=== PATIENT | male | born 1960 | race Caucasian/White ===

== ENCOUNTER 2018-09-27 09:47 | Emergency (ER) | payer BC ==
[~2018-09-27] VITALS: Ht 185.4 cm; Wt 74.8 kg
[2018-09-27] MEDS ORDERED: KETOROLAC 30 MG/ML VIAL. IV ONE (10:30)
[2018-09-27] MEDS ORDERED: FAMOTIDINE 20 MG/2 ML VIAL IVP ONE (10:30)
[2018-09-27] MEDS ORDERED: ONDANSETRON PF 4 MG/2 ML VIAL. IV ONE (10:30)
[2018-09-27] MEDS ORDERED: IV NORMAL SALINE 1000ML BAG 1,000 ML IV ONE (10:30)
[2018-09-27 11:04] LABS: BASO % 0 % (0-3); EOS % 0 % (0-3); HEMATOCRIT 49.8 % (39.0-53.0); HEMOGLOBIN 17.1 g/dL (13.0-17.5); LYMPH # 1.7 x10^3/uL (1.0-4.8); LYMPH % 16 % (24-48); MEAN CORPUSCULAR HEMOGLOBIN 31 pg (25-35); MEAN CORPUSCULAR HGB CONC 34 g/dL (31-37); MEAN CORPUSCULAR VOLUME 90 fL (79-100); MONO # 0.7 x10^3/uL (0.0-1.1); MONO % 7 % (0-9); NEUT # 8.3 x10^3uL (1.8-7.7); NEUT % 77 % (31-73); PLATELET COUNT 225 x10^3/uL (140-400); RED BLOOD COUNT 5.55 x10^6/uL (4.30-5.70); RED CELL DISTRIBUTION WIDTH 12.8 % (11.5-14.5); WHITE BLOOD COUNT 10.7 x10^3/uL (4.0-11.0)
--- NOTE | 2018-09-27 11:05 | PHYS DOC ---
Past Medical History Past Medical History: Other Additional Past Medical Histor: PANCREATITIS, BARRETS ESOPHAGUS Past Surgical History: Other Additional Past Surgical Histo: "MASS REMOVED FROM COLON" Alcohol Use: Rarely Drug Use: None Adult General Chief Complaint Chief Complaint: NAUSEA/VOMITING/DIARRHA HPI HPI Patient is a 58 year old male who presents with nausea, vomiting, diarrhea, and abdominal pain. Patient states that he developed epigastric pain last week. Patient states that he has a history of pancreatitis and thought he was having a flare of pancreatitis. Patient states that he developed nausea five days ago. Patient states that he began having watery, yellow-brown, nonbloody diarrhea three days ago. Patient reports one episode of nonbloody vomiting this morning, but no other episodes. Patient states that he has been having decreased oral intake and weakness for the past few days as well. Patient currently rates his epigastric pain to be 3/10. Denies any aggravating or alleviating factors. Denies radiation of pain. Denies any recent antibiotic use or recent travel. Denies chest pain. Review of Systems Review of Systems Constitutional: Denies fever or chills Eyes: Denies change in visual acuity or eye pain HENT: Denies nasal congestion or sore throat Respiratory: Denies cough or shortness of breath Cardiovascular: Denies chest pain or palpitations GI: Denies bloody stools. Denies hematemesis. : Denies dysuria or hematuria Musculoskeletal: Denies back pain. Reports chronic muscle aches. Integument: Denies rash or skin lesions Neurologic: Denies headache, focal weakness or sensory changes Complete systems were reviewed and found to be within normal limits, except as documented in this note. Current Medications Current Medications Current Medications Medications (Trade) Dose Ordered Sig/Reinaldo Start Time Stop Time Status Last Admin Dose Admin Famotidine (Pepcid Vial) 20 mg 1X ONCE 09/27/18 10:30 09/27/18 10:33 DC 09/27/18 11:10 20 MG Fentanyl Citrate (Fentanyl 2ml Vial) 50 mcg 1X ONCE 09/27/18 12:30 09/27/18 12:31 DC 09/27/18 12:33 50 MCG Ketorolac Tromethamine (Toradol 30mg Vial) 15 mg 1X ONCE 09/27/18 10:30 09/27/18 10:33 DC 09/27/18 11:06 15 MG Multi-Ingredient Mouthwash/Gargle (Gi Cocktail) 20 ml 1X ONCE 09/27/18 12:30 09/27/18 12:31 DC 09/27/18 12:33 20 ML Ondansetron HCl (Zofran) 4 mg 1X ONCE 09/27/18 10:30 09/27/18 10:33 DC 09/27/18 11:00 4 MG Sodium Chloride 1,000 ml @ 1,000 mls/hr 1X ONCE 09/27/18 10:30 09/27/18 11:29 DC 09/27/18 10:52 1,000 MLS/HR Allergies Allergies Allergies Coded Allergies Type Severity Reaction Last Updated Verified No Known Drug Allergies 09/27/18 No Physical Exam Physical Exam Constitutional: Well developed, well nourished, no acute distress. HENT: Normocephalic, atraumatic, nose normal. Mucous membranes dry. Eyes: PERRL, conjunctiva normal, no discharge. Neck: normal range of motion, supple, no stridor. Cardiovascular: Heart rate regular rhythm, no murmur Lungs & Thorax: Bilateral breath sounds clear to auscultation Abdomen: Bowel sounds active, soft, no distension, moderate epigastric tenderness on palpation. No rebound, guarding, or rigidity. Skin: Warm, dry, no erythema, no rash. Back: No midline tenderness, no CVA tenderness. Extremities: No tenderness, no cyanosis, no clubbing, ROM intact, no edema. Neurologic: Alert and oriented X 3, normal motor function, normal sensory function, no focal deficits noted. Psychologic: Affect normal. Speech normal. Current Patient Data Vital Signs Vital Signs Date Time Temp Pulse Resp B/P (MAP) Pulse Ox O2 Delivery O2 Flow Rate FiO2 09/27/18 12:41 60 16 112/72 (85) 94 Room Air 09/27/18 10:21 98.2 98.2 Lab Values Laboratory Tests Test 09/27/18 10:55 09/27/18 12:13 White Blood Count 10.7 x10^3/uL (4.0-11.0) Red Blood Count 5.55 x10^6/uL (4.30-5.70) Hemoglobin 17.1 g/dL (13.0-17.5) Hematocrit 49.8 % (39.0-53.0) Mean Corpuscular Volume 90 fL (79-100) Mean Corpuscular Hemoglobin 31 pg (25-35) Mean Corpuscular Hemoglobin Concent 34 g/dL (31-37) Red Cell Distribution Width 12.8 % (11.5-14.5) Platelet Count 225 x10^3/uL (140-400) Neutrophils (%) (Auto) 77 % (31-73) H Lymphocytes (%) (Auto) 16 % (24-48) L Monocytes (%) (Auto) 7 % (0-9) Eosinophils (%) (Auto) 0 % (0-3) Basophils (%) (Auto) 0 % (0-3) Neutrophils # (Auto) 8.3 x10^3uL (1.8-7.7) H Lymphocytes # (Auto) 1.7 x10^3/uL (1.0-4.8) Monocytes # (Auto) 0.7 x10^3/uL (0.0-1.1) Eosinophils # (Auto) 0.0 x10^3/uL (0.0-0.7) Basophils # (Auto) 0.0 x10^3/uL (0.0-0.2) Sodium Level 138 mmol/L (136-145) Potassium Level 4.5 mmol/L (3.5-5.1) Chloride Level 100 mmol/L (98-107) Carbon Dioxide Level 27 mmol/L (21-32) Anion Gap 11 (6-14) Blood Urea Nitrogen 12 mg/dL (8-26) Creatinine 0.6 mg/dL (0.7-1.3) L Estimated GFR (Cockcroft-Gault) 138.9 BUN/Creatinine Ratio 20 (6-20) Glucose Level 99 mg/dL (70-99) Calcium Level 9.2 mg/dL (8.5-10.1) Magnesium Level 2.1 mg/dL (1.8-2.4) Total Bilirubin 0.7 mg/dL (0.2-1.0) Aspartate Amino Transferase (AST) 27 U/L (15-37) Alanine Aminotransferase (ALT) 26 U/L (16-63) Alkaline Phosphatase 80 U/L (46-116) Creatine Kinase 67 U/L (39-308) Creatine Kinase MB (Mass) 2.5 ng/mL (0.0-3.6) Creatine Kinase MB Relative Index % (0-4) Troponin I Quantitative < 0.017 ng/mL (0.000-0.055) Total Protein 7.1 g/dL (6.4-8.2) Albumin 3.9 g/dL (3.4-5.0) Albumin/Globulin Ratio 1.2 (1.0-1.7) Lipase 139 U/L (73-393) Urine Collection Type Unknown Urine Color [place] Urine Clarity Clear Urine pH 5.5 Urine Specific [place] >=1.030 Urine Protein 30 mg/dL (NEG-TRACE) Urine Glucose (UA) Negative mg/dL (NEG) Urine Ketones (Stick) 15 mg/dL (NEG) Urine Blood Negative (NEG) Urine Nitrite Negative (NEG) Urine Bilirubin Small (NEG) Urine Urobilinogen Dipstick 1.0 mg/dL (0.2 mg/dL) Urine Leukocyte Esterase Negative (NEG) Urine RBC 0 /HPF (0-2) Urine WBC 0 /HPF (0-4) Urine Squamous Epithelial Cells Occ /LPF Urine Bacteria 0 /HPF (0-FEW) Urine Mucus Marked /LPF Laboratory Tests 09/27/18 10:55 Laboratory Tests 09/27/18 10:55 EKG EKG @NSR at 64bpm, NO ST elevation, J point V3-V6, nonspecific t wave inversion aVL and V2 Radiology/Procedures Radiology/Procedures [] Course & Med Decision Making Course & Med Decision Making Patient is a 58 year old male who presents to the ED for nausea, vomiting, diarrhea, and abdominal pain. Patient treated with Pepcid, Zofran, Ketorolac and fluids in the ED. Pertinent Labs and Imaging studies reviewed. (See chart for details). No significant abnormalities noted. Patient stable for discharge with outpatient follow-up with PCP. Discussed findings and plan with patient and family, who acknowledge understanding and agreement. Dragon Disclaimer Dragon Disclaimer This electronic medical record was generated, in whole or in part, using a voice recognition dictation system. Departure Departure Impression: Primary Impression: Epigastric abdominal pain Additional Impression: Nausea vomiting and diarrhea Disposition: HOME, SELF-CARE Condition: STABLE Referrals: NO PCP (PCP) Patient Instructions: Abdominal Pain (Nonspecific), Diarrhea, [id number], Diet for Diarrhea, Adult, Nausea and Vomiting, [id number] Scripts Acetaminophen With Codeine (TYLENOL WITH CODEINE #3 TABLET) 1 Each Tablet 1 TAB PO PRN Q6HRS PRN for PAIN, #10 TAB Prov: BOLIVAR SAXENA DO 09/27/18 Famotidine (PEPCID) 20 Mg Tablet 20 MG PO BID, #14 TAB Prov: BOLIVAR SAXENA DO 09/27/18 Ondansetron (ONDANSETRON ODT) 4 Mg Tab.rapdis 1 TAB PO PRN Q6-8HRS PRN for VOMITING, #16 TAB Prov: BOLIVAR SAXENA DO 09/27/18 Problem Qualifiers BOLIVAR SAXENA DO Sep 27, 2018 11:05
[2018-09-27 11:17] LABS: CALCIUM 9.2 mg/dL (8.5-10.1); CREATININE 0.6 mg/dL (0.7-1.3); GFR 138.9; POTASSIUM 4.5 mmol/L (3.5-5.1)
[2018-09-27 11:23] LABS: ALBUMIN 3.9 g/dL (3.4-5.0); ALBUMIN/GLOBULIN RATIO 1.2 (1.0-1.7); TOTAL BILIRUBIN 0.7 mg/dL (0.2-1.0); TOTAL PROTEIN 7.1 g/dL (6.4-8.2)
[2018-09-27 11:31] LABS: CREATINE KINASE 67 U/L (39-308)
--- NOTE | 2018-09-27 11:42 | EKG ---
[facility] [address] [place] [address] Test Date: 2018-09-27 Test Time: 11:05:43 Pat Name: MARK COLLADO Department: Room: Gender: M Security Inspector: : 1960 Requested By: BOLIVAR SAXENA Order Number: [id number] Reading MD: Aly Rivera Measurements Intervals [place] Rate: 64 P: 64 IA: 164 QRS: 90 QRSD: 102 T: 69 QT: 386 QTc: 402 Interpretive Statements SINUS RHYTHM Electronically Signed On 10-02-2018 13:15:33 CDT by Aly Rivera
[2018-09-27 12:29] LABS: BILIRUBIN,URINE SMALL (NEG); CLARITY,URINE CLEAR; COLOR,URINE AMBER; NITRITE,URINE NEGATIVE (NEG); PH,URINE 5.5; PROTEIN,URINE 30 mg/dL (NEG-TRACE)
[2018-09-27] MEDS ORDERED: fentaNYL PF VIAL 100 MCG/2 ML VIAL IV ONE (12:30)
[2018-09-27] MEDS ORDERED: LIDO:MAALOX 1:1 20 ML SINGLE DOSE. PO ONE (12:30)
[2018-09-27 12:39] LABS: BACTERIA,URINE 0 /HPF (0-FEW); RBC,URINE 0 /HPF (0-2); SQUAMOUS EPITHELIAL CELL,UR OCC /LPF; WBC,URINE 0 /HPF (0-4)
[2018-09-27 12:41] VITALS: BP 112/72
[2018-09-27] MEDS ORDERED: FAMO-63 PO (13:00)
[2018-09-27] MEDS ORDERED: ACET-704 PO (13:00)
[2018-09-27] MEDS ORDERED: ONDA4TAB12 PO (13:00)
[2018-10-26] MEDS ORDERED: CIPR250T30 PO (12:04)
== END 2018-09-27 13:09 | disposition home or self-care (01) ==
LOC: ER 09:47
DX: R11.2 Nausea with vomiting, unspecified (principal); R19.7 Diarrhea, unspecified; R10.13 Epigastric pain
CPT/HCPCS: 36415; 80053; 81001; 82553; 83690; 83735; 84484; 85025; 93005; 96361; 96374; 96375; 99285; J1885; J2405; J3010; J3490; J7030

== ENCOUNTER 2018-10-25 09:07 | Inpatient (IN) | payer BC ==
[~2018-10-25] VITALS: Ht 182.9 cm; Wt 72.6 kg
[~2018-10-25 09:07] MED LIST: ACET-704 PO; FAMO-63 PO; ONDA4TAB12 PO
[2018-10-25 09:27] LABS: BILIRUBIN,URINE NEGATIVE (NEG); CLARITY,URINE CLOUDY; COLOR,URINE YELLOW; NITRITE,URINE NEGATIVE (NEG); PH,URINE 5.5; PROTEIN,URINE NEGATIVE (NEG-TRACE); UROBILINOGEN,URINE 0.2 mg/dL (0.2 mg/dL)
[2018-10-25 09:30] LABS: BASO # 0.1 x10^3/uL (0.0-0.2); BASO % 1 % (0-3); EOS # 0.1 x10^3/uL (0.0-0.7); EOS % 1 % (0-3); HEMOGLOBIN 15.5 g/dL (13.0-17.5); LYMPH # 2.3 x10^3/uL (1.0-4.8); LYMPH % 27 % (24-48); MEAN CORPUSCULAR HEMOGLOBIN 31 pg (25-35); MEAN CORPUSCULAR HGB CONC 35 g/dL (31-37); MEAN CORPUSCULAR VOLUME 90 fL (79-100); MONO # 0.5 x10^3/uL (0.0-1.1); MONO % 6 % (0-9); NEUT # 5.6 x10^3uL (1.8-7.7); NEUT % 65 % (31-73); PLATELET COUNT 242 x10^3/uL (140-400); RED BLOOD COUNT 4.98 x10^6/uL (4.30-5.70); RED CELL DISTRIBUTION WIDTH 12.9 % (11.5-14.5); WHITE BLOOD COUNT 8.6 x10^3/uL (4.0-11.0)
[2018-10-25] MEDS ORDERED: ONDANSETRON PF 4 MG/2 ML VIAL. IV ONE (09:30)
[2018-10-25] MEDS ORDERED: fentaNYL PF VIAL 100 MCG/2 ML VIAL IV ONE (09:30)
[2018-10-25] MEDS ORDERED: IV NORMAL SALINE 1000ML BAG 1,000 ML IV ONE (09:30)
[2018-10-25] MEDS ORDERED: IOHEXOL 300 MG/ML 100ML VIAL. IV ONE (09:45)
[2018-10-25 09:49] LABS: SQUAMOUS EPITHELIAL CELL,UR OCC /LPF
[2018-10-25 09:51] LABS: BACTERIA,URINE FEW /HPF (0-FEW); RBC,URINE OCC /HPF (0-2)
[2018-10-25 09:58] LABS: CALCIUM 8.9 mg/dL (8.5-10.1); CREATININE 0.8 mg/dL (0.7-1.3); GFR 99.6
[2018-10-25] MEDS ORDERED: CONTRAST GIVEN. MC PRN (10:00)
[2018-10-25 10:02] LABS: ALBUMIN 3.9 g/dL (3.4-5.0); ALBUMIN/GLOBULIN RATIO 1.3 (1.0-1.7); TOTAL BILIRUBIN 0.8 mg/dL (0.2-1.0); TOTAL PROTEIN 6.8 g/dL (6.4-8.2)
--- NOTE | 2018-10-25 10:28 | PHYS DOC ---
Past Medical History Past Medical History: Other Additional Past Medical Histor: PANCREATITIS, BARRETS ESOPHAGUS Past Surgical History: Other Additional Past Surgical Histo: "MASS REMOVED FROM COLON" Alcohol Use: Occasionally Drug Use: Marijuana Adult General Chief Complaint Chief Complaint: ABDOMINAL PAIN HPI HPI Patient is a 58 year old M who presents with abdominal pain. He was at work when the pain started in the middle of his abdomen. He says he's had pancreatitis be fore but this seems worse. He is unsure what caused pancreatitis before. He had a normal bowel movement this morning with no blood or black stools. He feels nauseous but has not vomited. He felt fine yesterday. He reports remote history of a mass being removed from his colon and an appendectomy when he was a child. He denies any other abdominal surgeries. He admits to drinking alcohol occasionally, he had 2 shots of Bautista last night. He smokes cigarettes and occasionally smokes marijuana but denies any other drug use. Review of Systems Review of Systems Constitutional: Denies fever or chills Eyes: Denies change in visual acuity, redness, or eye pain HENT: Denies nasal congestion or sore throat Respiratory: Denies cough or shortness of breath Cardiovascular: No additional information not addressed in HPI GI: Denies bloody stools or diarrhea, endorses abd pain and nausea : Denies dysuria or hematuria Musculoskeletal: Denies back pain or joint pain Integument: Denies rash or skin lesions Neurologic: Denies headache, focal weakness or sensory changes All other systems were reviewed and found to be within normal limits, except as documented in this note. Current Medications Current Medications Current Medications Medications (Trade) Dose Ordered Sig/Reinaldo Start Time Stop Time Status Last Admin Dose Admin Fentanyl Citrate (Fentanyl 2ml Vial) 50 mcg 1X ONCE 10/25/18 09:30 10/25/18 09:31 DC 10/25/18 09:31 50 MCG Info (CONTRAST GIVEN -- Rx MONITORING) 1 each PRN DAILY PRN 10/25/18 10:00 10/27/18 09:59 Iohexol (Omnipaque 300 Mg/ml) 75 ml 1X ONCE 10/25/18 09:45 10/25/18 09:46 DC 10/25/18 09:45 75 ML Morphine Sulfate (Morphine Sulfate) 4 mg 1X ONCE 10/25/18 10:30 10/25/18 10:33 DC 10/25/18 10:37 4 MG Ondansetron HCl (Zofran) 4 mg 1X ONCE 10/25/18 09:30 10/25/18 09:31 DC 10/25/18 09:29 4 MG Sodium Chloride 1,000 ml @ 1,000 mls/hr 1X ONCE 10/25/18 09:30 10/25/18 10:29 DC 10/25/18 09:28 1,000 MLS/HR Allergies Allergies Allergies Coded Allergies Type Severity Reaction Last Updated Verified No Known Drug Allergies 09/27/18 No Physical Exam Physical Exam Constitutional: Well developed, well nourished, no acute distress, non-toxic appearance. HENT: Normocephalic, atraumatic, bilateral external ears normal, oropharynx moist, no oral exudates, nose normal. Eyes: PERRLA, EOMI, conjunctiva normal, no discharge Neck: Normal range of motion, no tenderness, supple, no stridor Cardiovascular:Heart rate regular rhythm, no murmur Lungs & Thorax: Bilateral breath sounds clear to auscultation Abdomen: Firm, diffuse TTP, no rebound or guarding Skin: Warm, dry, no erythema, no rash Back: No tenderness, no CVA tenderness Extremities: No tenderness, no cyanosis, no clubbing, ROM intact, no edema Neurologic: Alert and oriented X 3, normal motor function, normal sensory function, no focal deficits noted Psychologic: Affect normal, judgement normal, mood normal Current Patient Data Vital Signs Vital Signs Date Time Temp Pulse Resp B/P (MAP) Pulse Ox O2 Delivery O2 Flow Rate FiO2 10/25/18 10:34 64 16 105/64 (78) 95 Room Air 10/25/18 09:20 98.4 98.4 Lab Values Laboratory Tests Test 10/25/18 09:13 10/25/18 09:15 Urine Collection Type Unknown Urine Color Yellow Urine Clarity Cloudy Urine pH 5.5 Urine Specific [place] 1.020 Urine Protein Negative mg/dL (NEG-TRACE) Urine Glucose (UA) Negative mg/dL (NEG) Urine Ketones (Stick) Negative mg/dL (NEG) Urine Blood Negative (NEG) Urine Nitrite Negative (NEG) Urine Bilirubin Negative (NEG) Urine Urobilinogen Dipstick 0.2 mg/dL (0.2 mg/dL) Urine Leukocyte Esterase Negative (NEG) Urine RBC Occ /HPF (0-2) Urine WBC 1-4 /HPF (0-4) Urine Squamous Epithelial Cells Occ /LPF Urine Bacteria Few /HPF (0-FEW) Urine Mucus Marked /LPF White Blood Count 8.6 x10^3/uL (4.0-11.0) Red Blood Count 4.98 x10^6/uL (4.30-5.70) Hemoglobin 15.5 g/dL (13.0-17.5) Hematocrit 45.0 % (39.0-53.0) Mean Corpuscular Volume 90 fL (79-100) Mean Corpuscular Hemoglobin 31 pg (25-35) Mean Corpuscular Hemoglobin Concent 35 g/dL (31-37) Red Cell Distribution Width 12.9 % (11.5-14.5) Platelet Count 242 x10^3/uL (140-400) Neutrophils (%) (Auto) 65 % (31-73) Lymphocytes (%) (Auto) 27 % (24-48) Monocytes (%) (Auto) 6 % (0-9) Eosinophils (%) (Auto) 1 % (0-3) Basophils (%) (Auto) 1 % (0-3) Neutrophils # (Auto) 5.6 x10^3uL (1.8-7.7) Lymphocytes # (Auto) 2.3 x10^3/uL (1.0-4.8) Monocytes # (Auto) 0.5 x10^3/uL (0.0-1.1) Eosinophils # (Auto) 0.1 x10^3/uL (0.0-0.7) Basophils # (Auto) 0.1 x10^3/uL (0.0-0.2) Sodium Level 140 mmol/L (136-145) Potassium Level 4.0 mmol/L (3.5-5.1) Chloride Level 103 mmol/L (98-107) Carbon Dioxide Level 28 mmol/L (21-32) Anion Gap 9 (6-14) Blood Urea Nitrogen 11 mg/dL (8-26) Creatinine 0.8 mg/dL (0.7-1.3) Estimated GFR (Cockcroft-Gault) 99.6 BUN/Creatinine Ratio 14 (6-20) Glucose Level 96 mg/dL (70-99) Calcium Level 8.9 mg/dL (8.5-10.1) Total Bilirubin 0.8 mg/dL (0.2-1.0) Aspartate Amino Transferase (AST) 25 U/L (15-37) Alanine Aminotransferase (ALT) 24 U/L (16-63) Alkaline Phosphatase 70 U/L (46-116) Total Protein 6.8 g/dL (6.4-8.2) Albumin 3.9 g/dL (3.4-5.0) Albumin/Globulin Ratio 1.3 (1.0-1.7) Lipase 3378 U/L (73-393) H Laboratory Tests 10/25/18 09:15 Laboratory Tests 10/25/18 09:15 EKG EKG [] Radiology/Procedures Radiology/Procedures [] Course & Med Decision Making Course & Med Decision Making Pertinent Labs and Imaging studies reviewed. (See chart for details) 58-year-old male with history of abdominal surgeries as a child, pancreatitis, alcohol use, presents for periumbilical abdominal pain. On exam he has diffuse abdominal tenderness with some firmness of the abdomen but not rigidity. His vital signs are within normal limits. He is status post appendectomy. Differential diagnosis includes pancreatitis vs diverticulitis versus bowel obstruction. CBC, CMP, lipase UA CT abdomen and pelvis with contrast Morphine when necessary pain, Zofran Normal saline 1 L bolus Admit for pancreatitis. Pain improved after morphine. Dragon Disclaimer Dragon Disclaimer This electronic medical record was generated, in whole or in part, using a voice recognition dictation system. Departure Departure Disposition: ADMITTED INPATIENT Admitting Physician: Other Condition: IMPROVED Referrals: NO PCP (PCP) EDU BLEVINS MD October 25, 2018 10:28
[2018-10-25] MEDS ORDERED: MORPHINE SULFATE 4 MG/ML VIAL. IV ONE (10:30)
[2018-10-25] MEDS ORDERED: ONDANSETRON PF 4 MG/2 ML VIAL. IV PRN (11:15)
[2018-10-25] MEDS ORDERED: MORPHINE SULFATE 4 MG/ML VIAL. IV PRN (11:15)
--- NOTE | 2018-10-25 11:22 | RAD ---
Examination: CT of the abdomen pelvis with IV contrast HISTORY: History of abdominal pain, vomiting COMPARISON: None available TECHNIQUE: Axial CT images of the abdomen pelvis were performed with IV contrast. Coronal and sagittal reformats are performed Exposure: One or more of the following individualized dose reduction techniques were utilized for this examination: 1. Automated exposure control 2. Adjustment of the mA and/or kV according to patient size 3. Use of iterative reconstruction technique FINDINGS: Minimal left lung base airspace opacity likely atelectasis or infiltrates. No evidence of free air identified in the abdomen. The visualized liver, demonstrates a hypodensity in the left lobe of the liver probably focal fat. The visualized spleen, adrenals grossly appears unremarkable. The gallbladder is mildly distended. The stomach is mildly distended. There is mild prominent appearing pancreatic duct. The small bowel is nondilated. Minimal fat stranding identified about the distal small bowel loops. Feces and gas noted in the colon throughout. The bilateral kidneys enhance symmetrically. Punctate 4 mm intrarenal collecting system calculus identified in the right kidney. Urinary bladder is mildly distended. Moderate aortic atherosclerosis. Moderate degenerative changes identified in the lumbar spine. IMPRESSION: 1. Minimal fat stranding identified about the distal small bowel loops, nonspecific could be mild enteritis. 2. Mild prominent appearing pancreatic duct. Nonspecific. Follow-up MRCP can be considered. 3. Punctate 4 mm calculus right kidney. 4. Minimal left lung base airspace opacities likely atelectasis or infiltrates. Electronically signed by: Sourav Mao MD (10/25/2018 11:19 AM) [id number]
[2018-10-25] MEDS: NICOTINE 21MG PATCH. TD SCH (11:53)
--- NOTE | 2018-10-25 14:51 | PDOC1 ---
History and Physical Date of Admission Date of Admission DATE: 10/25/18 TIME: 14:40 Identification/Chief Complaint Chief Complaint Abdominal pain Source Source: Patient History of Present Illness History of Present Illness Patient is a 58 yo M w/ PMHx Barretts esophagus (EGD 4 years ago), recurrent pancreatitis who presents with abdominal pain. He was at work when the pain started in the middle of his abdomen. He says he's had pancreatitis before but this seems worse. He is unsure what caused pancreatitis before. He had a normal bowel movement this morning with no blood or black stools. He feels nauseous but has not vomited. He felt fine yesterday. He reports remote history of a mass being removed from his colon (Meckel's) and an appendectomy when he was a child. He denies any other abdominal surgeries. He admits to drinking alcohol occasionally, he had 2 shots of Bautista last night. He smokes cigarettes and occasionally smokes marijuana but denies any other drug use. On further ROS he states he has lost 20# over the past few months, offhandedly. Past Medical History Cardiovascular: No pertinent hx Pulmonary: No pertinent hx GI: GERD, Other (Pancreatitis, Barretts) Heme/Onc: No pertinent hx Hepatobiliary: No pertinent hx Psych: No pertinent hx Rheumatologic: No pertinent hx Infectious disease: No pertinent hx ENT: No pertinent hx Renal/: No pertinent hx Endocrine: No pertinent hx Dermatology: No pertinent hx Past Surgical History Past Surgical History: Appendectomy, Other (Colon surgery) Family History Family History: Heart Disease Social History ALCOHOL: heavy Drugs: None Current Problem List Problem List Problems Medical Problems: (1) Pancreatitis Status: Acute Current Medications Current Medications Current Medications Ondansetron HCl (Zofran) 4 mg 1X ONCE IV Last administered on 10/25/18at 09:29; Start 10/25/18 at 09:30; Stop 10/25/18 at 09:31; Status DC Sodium Chloride 1,000 ml @ 1,000 mls/hr 1X ONCE IV Last administered on 10/25/18at 09:28; Start 10/25/18 at 09:30; Stop 10/25/18 at 10:29; Status DC Fentanyl Citrate (Fentanyl 2ml Vial) 50 mcg 1X ONCE IV Last administered on 10/25/18at 09:31; Start 10/25/18 at 09:30; Stop 10/25/18 at 09:31; Status DC Iohexol (Omnipaque 300 Mg/ml) 75 ml 1X ONCE IV Last administered on 10/25/18at 09:45; Start 10/25/18 at 09:45; Stop 10/25/18 at 09:46; Status DC Info (CONTRAST GIVEN -- Rx MONITORING) 1 each PRN DAILY PRN MC SEE COMMENTS; Start 10/25/18 at 10:00; Stop 10/27/18 at 09:59 Morphine Sulfate (Morphine Sulfate) 4 mg 1X ONCE IV Last administered on 10/25/18at 10:37; Start 10/25/18 at 10:30; Stop 10/25/18 at 10:33; Status DC Ondansetron HCl (Zofran) 4 mg PRN Q8HRS PRN IV NAUSEA/VOMITING; Start 10/25/18 at 11:15; Stop 10/26/18 at 11:14 Morphine Sulfate (Morphine Sulfate) 4 mg PRN Q2HR PRN IV PAIN; Start 10/25/18 at 11:15; Stop 10/26/18 at 11:14 Nicotine (Nicoderm Cq 21mg) 1 patch DAILY TD Last administered on 10/25/18at 11:53; Start 10/25/18 at 12:00 Active Scripts Active Tylenol With Codeine #3 Tablet (Acetaminophen/Codeine Phosphate) 1 Each Tablet 1 Tab PO PRN Q6HRS PRN Pepcid (Famotidine) 20 Mg Tablet 20 Mg PO BID Ondansetron Odt (Ondansetron) 4 Mg Tab.rapdis 1 Tab PO PRN Q6-8HRS PRN Allergies Allergies: Coded Allergies: No Known Drug Allergies (Unverified , 09/27/18) ROS General: YES: Fatigue, Malaise, Appetite; No: Chills, Night Sweats, Other PSYCHOLOGICAL ROS: No: Anxiety, Behavioral Disorder, Concentration difficultie, Decreased libido, Depression, Disorientation, Hallucinations, Hostility, Irritablity, Memory difficulties, Mood Swings, Obsessive thoughts, Physical abuse, Sexual abuse, Sleep disturbances, Suicidal ideation, Other Eyes: No Blurry vision, No Decreased vision, No Double vision, No Dry eyes, No Excessive tearing, No Eye Pain, No Itchy Eyes, No Loss of vision, No Photo phobia, No Scotomata, No Uses contacts, No Uses glasses, No Other HEENT: No: Heacaches, Visual Changes, Hearing change, Nasal congestion, Nasal discharge, Oral lesions, Sinus pain, Sore Throat, Epistaxis, Sneezing, Snoring, Tinnitus, Vertigo, Vocal changes, Other ALLERGY AND IMMUNOLOGY: No: Hives, Insect Bite Sensitivity, Itchy/Watery Eyes, Nasal Congestion, Post Nasal Drip, Seasonal Allergies, Other Hematological and Lymphatic: No: Bleeding Problems, Blood Clots, Blood Transfusions, Brusing, Night Sweats, Pallor, Swollen Lymph Nodes, Other ENDOCRINE: No: Breast Changes, Galactorrhea, Hair Pattern Changes, Hot Flashes, Malaise/lethargy, Mood Swings, Palpitations, Polydipsia/polyuria, Skin Changes, Temperature Intolerance, Unexpected Weight Changes, Other Breast: No New/Changing Breast Lumps, No Nipple changes, No Nipple discharge, No Other Respiratory: No: Cough, Hemoptysis, Orthopnea, Pleuritic Pain, Shortness of breath, SOB with excertion, Sputum Changes, Stridor, Tachypnea, Wheezing, Other Cardiovascular: No Chest Pain, No Palpitations, No Orthopnea, No Paroxysmal Noc. Dyspnea, No Edema, No Lt Headedness, No Other Gastrointestinal: Yes Nausea, Yes Abdominal Pain; No Vomiting, No Diarrhea, No Constipation, No Melena, No Hematochezia, No Other Genitourinary: No Dysuria, No Frequency, No Incontinence, No Hematuria, No Retention, No Discharge, No Urgency, No Pain, No Flank Pain, No Other, No , No , No , No , No , No , No Musculoskeletal: No Gait Disturbance, No Joint Pain, No Joint Stiffness, No Joint Swelling, No Muscle Pain, No Muscular Weakness, No Pain In:, No Swelling In:, No Other Neurological: No Behavorial Changes, No Bowel/Bladder ControlChng, No Confusion, No Dizziness, No Gait Disturbance, No Headaches, No Impaired Coord/ balance, No Memory Loss, No Numbness/Tingling, No Seizures, No Speech Problems, No Tremors, No Visual Changes, No Weakness, No Other Skin: No Dry Skin, No Eczema, No Hair Changes, No Lumps, No Mole Changes, No Mottling, No Nail Changes, No Pruritus, No Rash, No Skin Lesion Changes, No Other, No Acne Physical Exam General: Alert, Oriented X3, Cooperative, No acute distress HEENT: Atraumatic, PERRLA, EOMI, Mucous membr. moist/pink Lungs: Clear to auscultation, Normal air movement Heart: S1S2, RRR, no gallops, no murmurs Abdomen: Normal bowel sounds, Soft, No hepatosplenomegaly, No masses, Other (Bilateral lower quadrant tenderness) Rectal Exam: not examined Extremities: No clubbing, No cyanosis, No edema, Normal pulses, No tenderness/swelling Skin: No rashes, No breakdown, No significant lesion Neuro: Normal gait, Normal speech, Strength at 5/5 X4 ext, Normal tone, Sensation intact, Cranial nerves 3-12 NL, Reflexes 2+ Psych/Mental Status: Mental status NL, Mood NL Vitals Vitals Vital Signs Date Time Temp Pulse Resp B/P (MAP) Pulse Ox O2 Delivery O2 Flow Rate FiO2 10/25/18 12:10 62 16 111/67 (82) 98 Room Air 10/25/18 09:20 98.4 98.4 Labs Labs Laboratory Tests Test 10/25/18 09:13 10/25/18 09:15 Urine Collection Type Unknown Urine Color Yellow Urine Clarity Cloudy Urine pH 5.5 Urine Specific [place] 1.020 Urine Protein Negative mg/dL (NEG-TRACE) Urine Glucose (UA) Negative mg/dL (NEG) Urine Ketones (Stick) Negative mg/dL (NEG) Urine Blood Negative (NEG) Urine Nitrite Negative (NEG) Urine Bilirubin Negative (NEG) Urine Urobilinogen Dipstick 0.2 mg/dL (0.2 mg/dL) Urine Leukocyte Esterase Negative (NEG) Urine RBC Occ /HPF (0-2) Urine WBC 1-4 /HPF (0-4) Urine Squamous Epithelial Cells Occ /LPF Urine Bacteria Few /HPF (0-FEW) Urine Mucus Marked /LPF White Blood Count 8.6 x10^3/uL (4.0-11.0) Red Blood Count 4.98 x10^6/uL (4.30-5.70) Hemoglobin 15.5 g/dL (13.0-17.5) Hematocrit 45.0 % (39.0-53.0) Mean Corpuscular Volume 90 fL (79-100) Mean Corpuscular Hemoglobin 31 pg (25-35) Mean Corpuscular Hemoglobin Concent 35 g/dL (31-37) Red Cell Distribution Width 12.9 % (11.5-14.5) Platelet Count 242 x10^3/uL (140-400) Neutrophils (%) (Auto) 65 % (31-73) Lymphocytes (%) (Auto) 27 % (24-48) Monocytes (%) (Auto) 6 % (0-9) Eosinophils (%) (Auto) 1 % (0-3) Basophils (%) (Auto) 1 % (0-3) Neutrophils # (Auto) 5.6 x10^3uL (1.8-7.7) Lymphocytes # (Auto) 2.3 x10^3/uL (1.0-4.8) Monocytes # (Auto) 0.5 x10^3/uL (0.0-1.1) Eosinophils # (Auto) 0.1 x10^3/uL (0.0-0.7) Basophils # (Auto) 0.1 x10^3/uL (0.0-0.2) Sodium Level 140 mmol/L (136-145) Potassium Level 4.0 mmol/L (3.5-5.1) Chloride Level 103 mmol/L (98-107) Carbon Dioxide Level 28 mmol/L (21-32) Anion Gap 9 (6-14) Blood Urea Nitrogen 11 mg/dL (8-26) Creatinine 0.8 mg/dL (0.7-1.3) Estimated GFR (Cockcroft-Gault) 99.6 BUN/Creatinine Ratio 14 (6-20) Glucose Level 96 mg/dL (70-99) Calcium Level 8.9 mg/dL (8.5-10.1) Total Bilirubin 0.8 mg/dL (0.2-1.0) Aspartate Amino Transf (AST/SGOT) 25 U/L (15-37) Alanine Aminotransferase (ALT/SGPT) 24 U/L (16-63) Alkaline Phosphatase 70 U/L (46-116) Total Protein 6.8 g/dL (6.4-8.2) Albumin 3.9 g/dL (3.4-5.0) Albumin/Globulin Ratio 1.3 (1.0-1.7) Lipase 3378 U/L (73-393) Laboratory Tests Test 10/25/18 09:13 10/25/18 09:15 Urine Collection Type Unknown Urine Color Yellow Urine Clarity Cloudy Urine pH 5.5 Urine Specific [place] 1.020 Urine Protein Negative mg/dL (NEG-TRACE) Urine Glucose (UA) Negative mg/dL (NEG) Urine Ketones (Stick) Negative mg/dL (NEG) Urine Blood Negative (NEG) Urine Nitrite Negative (NEG) Urine Bilirubin Negative (NEG) Urine Urobilinogen Dipstick 0.2 mg/dL (0.2 mg/dL) Urine Leukocyte Esterase Negative (NEG) Urine RBC Occ /HPF (0-2) Urine WBC 1-4 /HPF (0-4) Urine Squamous Epithelial Cells Occ /LPF Urine Bacteria Few /HPF (0-FEW) Urine Mucus Marked /LPF White Blood Count 8.6 x10^3/uL (4.0-11.0) Red Blood Count 4.98 x10^6/uL (4.30-5.70) Hemoglobin 15.5 g/dL (13.0-17.5) Hematocrit 45.0 % (39.0-53.0) Mean Corpuscular Volume 90 fL (79-100) Mean Corpuscular Hemoglobin 31 pg (25-35) Mean Corpuscular Hemoglobin Concent 35 g/dL (31-37) Red Cell Distribution Width 12.9 % (11.5-14.5) Platelet Count 242 x10^3/uL (140-400) Neutrophils (%) (Auto) 65 % (31-73) Lymphocytes (%) (Auto) 27 % (24-48) Monocytes (%) (Auto) 6 % (0-9) Eosinophils (%) (Auto) 1 % (0-3) Basophils (%) (Auto) 1 % (0-3) Neutrophils # (Auto) 5.6 x10^3uL (1.8-7.7) Lymphocytes # (Auto) 2.3 x10^3/uL (1.0-4.8) Monocytes # (Auto) 0.5 x10^3/uL (0.0-1.1) Eosinophils # (Auto) 0.1 x10^3/uL (0.0-0.7) Basophils # (Auto) 0.1 x10^3/uL (0.0-0.2) Sodium Level 140 mmol/L (136-145) Potassium Level 4.0 mmol/L (3.5-5.1) Chloride Level 103 mmol/L (98-107) Carbon Dioxide Level 28 mmol/L (21-32) Anion Gap 9 (6-14) Blood Urea Nitrogen 11 mg/dL (8-26) Creatinine 0.8 mg/dL (0.7-1.3) Estimated GFR (Cockcroft-Gault) 99.6 BUN/Creatinine Ratio 14 (6-20) Glucose Level 96 mg/dL (70-99) Calcium Level 8.9 mg/dL (8.5-10.1) Total Bilirubin 0.8 mg/dL (0.2-1.0) Aspartate Amino Transf (AST/SGOT) 25 U/L (15-37) Alanine Aminotransferase (ALT/SGPT) 24 U/L (16-63) Alkaline Phosphatase 70 U/L (46-116) Total Protein 6.8 g/dL (6.4-8.2) Albumin 3.9 g/dL (3.4-5.0) Albumin/Globulin Ratio 1.3 (1.0-1.7) Lipase 3378 U/L (73-393) Images Images CT abdomen/pelvis - 1. Minimal fat stranding identified about the distal small bowel loops, nonspecific could be mild enteritis. 2. Mild prominent appearing pancreatic duct. Nonspecific. Follow-up MRCP can be considered. VTE Prophylaxis Ordered VTE Prophylaxis Devices: No VTE Pharmacological Prophylaxi: Yes Assessment/Plan Assessment/Plan A/P: Abdominal pain - CT read as enteritis Unintentional weight loss - 20# over 3 months, will consult GI Acute pancreatitis - atypical presentation for him, however, lipase elevation and pain with history of ETOH and fatty food intake are pretty consistent. Still has his gallbladder. Will consult GI. He is amenable to a RUQ US Barretts esophagus - last scoped 4 years ago, only on H2 lasha outpatient. Will consult GI to see him FEN - NPO, could consider clears if ok with GI PPX - pepcid IV, SCDs FULL CODE Inpatient for acute pancreatitis, likely 2 midnights. VASILE CULLEN MD October 25, 2018 14:51
[2018-10-25 15:00] VITALS: BP 99/55
[2018-10-25] MEDS ORDERED: ONDANSETRON ODT 4 MG TAB.RAPDIS. PO PRN (15:45)
[2018-10-25] MEDS ORDERED: FAMOTIDINE 20 MG/2 ML VIAL IVP SCH (16:00)
--- NOTE | 2018-10-25 17:05 | PDOC2 ---
GI CONSULT Reason For Consult: Pancreatitis HPI: HPI: 58 y/o male who I saw w/ Dr. Aguirre this afternoon after discussion w/ Dr. Urbina. He was admitted through the ER with "the worst gut pain he's ever had." Sharp stabbing suprapubic ("from hip to hip") pain began this morning at 8:00 a.m. while at work. Denies precipitating events. He does have a h/o pancreatitis and drank alcohol and ate a fatty meal last night; however, this pain is different from his typical pancreas pain (which is LUQ wrapping around to back). H/o GERD/Cmkenna's esophagus w/ last EGD @ [facility] ~4 years ago. No dysphagia, n/v, hematemesis, hematochezia, melena, diarrhea, or constipation. Last stool was this morning - formed and brown. Denies fever. Has lost 20 pounds unintentionally. Denies urinary symptoms. No GB or liver history. PMH: PMH: Mckenna's esophagus, pancreatitis, nephrolithiasis bowel resection (?Meckel's), appendectomy Social History: Smoke: <1 pack per day ALCOHOL: other (h/o heavy alcohol use, less now) Drugs: Marijuana ROS: GEN: Denies fevers, chills, sweats HEENT: Denies blurred vision, sore throat CV: Denies chest pain RESP: Denies shortness of air, cough GI: Per HPI : Denies hematuria, dysuria ENDO: +weight loss NEURO: Denies confusion, dizziness MSK: Denies weakness, joint pain/swelling SKIN: Denies jaundice, pruritus Vitals: Vitals: Vital Signs Date Time Temp Pulse Resp B/P (MAP) Pulse Ox O2 Delivery O2 Flow Rate FiO2 10/25/18 15:00 98.3 64 18 99/55 (70) 96 Room Air 98.3 Labs: Labs: Laboratory Tests Test 10/25/18 09:13 10/25/18 09:15 Urine Collection Type Unknown Urine Color Yellow Urine Clarity Cloudy Urine pH 5.5 Urine Specific [place] 1.020 Urine Protein Negative mg/dL (NEG-TRACE) Urine Glucose (UA) Negative mg/dL (NEG) Urine Ketones (Stick) Negative mg/dL (NEG) Urine Blood Negative (NEG) Urine Nitrite Negative (NEG) Urine Bilirubin Negative (NEG) Urine Urobilinogen Dipstick 0.2 mg/dL (0.2 mg/dL) Urine Leukocyte Esterase Negative (NEG) Urine RBC Occ /HPF (0-2) Urine WBC 1-4 /HPF (0-4) Urine Squamous Epithelial Cells Occ /LPF Urine Bacteria Few /HPF (0-FEW) Urine Mucus Marked /LPF White Blood Count 8.6 x10^3/uL (4.0-11.0) Red Blood Count 4.98 x10^6/uL (4.30-5.70) Hemoglobin 15.5 g/dL (13.0-17.5) Hematocrit 45.0 % (39.0-53.0) Mean Corpuscular Volume 90 fL (79-100) Mean Corpuscular Hemoglobin 31 pg (25-35) Mean Corpuscular Hemoglobin Concent 35 g/dL (31-37) Red Cell Distribution Width 12.9 % (11.5-14.5) Platelet Count 242 x10^3/uL (140-400) Neutrophils (%) (Auto) 65 % (31-73) Lymphocytes (%) (Auto) 27 % (24-48) Monocytes (%) (Auto) 6 % (0-9) Eosinophils (%) (Auto) 1 % (0-3) Basophils (%) (Auto) 1 % (0-3) Neutrophils # (Auto) 5.6 x10^3uL (1.8-7.7) Lymphocytes # (Auto) 2.3 x10^3/uL (1.0-4.8) Monocytes # (Auto) 0.5 x10^3/uL (0.0-1.1) Eosinophils # (Auto) 0.1 x10^3/uL (0.0-0.7) Basophils # (Auto) 0.1 x10^3/uL (0.0-0.2) Sodium Level 140 mmol/L (136-145) Potassium Level 4.0 mmol/L (3.5-5.1) Chloride Level 103 mmol/L (98-107) Carbon Dioxide Level 28 mmol/L (21-32) Anion Gap 9 (6-14) Blood Urea Nitrogen 11 mg/dL (8-26) Creatinine 0.8 mg/dL (0.7-1.3) Estimated GFR (Cockcroft-Gault) 99.6 BUN/Creatinine Ratio 14 (6-20) Glucose Level 96 mg/dL (70-99) Calcium Level 8.9 mg/dL (8.5-10.1) Total Bilirubin 0.8 mg/dL (0.2-1.0) Aspartate Amino Transf (AST/SGOT) 25 U/L (15-37) Alanine Aminotransferase (ALT/SGPT) 24 U/L (16-63) Alkaline Phosphatase 70 U/L (46-116) Total Protein 6.8 g/dL (6.4-8.2) Albumin 3.9 g/dL (3.4-5.0) Albumin/Globulin Ratio 1.3 (1.0-1.7) Lipase 3378 U/L (73-393) Allergies: Coded Allergies: No Known Drug Allergies (Unverified , 09/27/18) Medications: Current Medications Medications (Trade) Dose Ordered Sig/Reinaldo Route PRN Reason Start Time Stop Time Status Last Admin Dose Admin Ondansetron HCl (Zofran) 4 mg 1X ONCE IV 10/25/18 09:30 10/25/18 09:31 DC 10/25/18 09:29 Sodium Chloride 1,000 ml @ 1,000 mls/hr 1X ONCE IV 10/25/18 09:30 10/25/18 10:29 DC 10/25/18 09:28 Fentanyl Citrate (Fentanyl 2ml Vial) 50 mcg 1X ONCE IV 10/25/18 09:30 10/25/18 09:31 DC 10/25/18 09:31 Iohexol (Omnipaque 300 Mg/ml) 75 ml 1X ONCE IV 10/25/18 09:45 10/25/18 09:46 DC 10/25/18 09:45 Morphine Sulfate (Morphine Sulfate) 4 mg 1X ONCE IV 10/25/18 10:30 10/25/18 10:33 DC 10/25/18 10:37 Nicotine (Nicoderm Cq 21mg) 1 patch DAILY TD 10/25/18 12:00 10/25/18 11:53 Imaging: Imaging: CT A/P w/ IV contrast FINDINGS: Minimal left lung base airspace opacity likely atelectasis or infiltrates. No evidence of free air identified in the abdomen. The visualized liver, demonst rates a hypodensity in the left lobe of the liver probably focal fat. The visualized spleen, adrenals grossly appears unremarkable. The gallbladder is mildly distended. The stomach is mildly distended. There is mild prominent appearing pancreatic duct. The small bowel is nondilated. Minimal fat stranding identified about the distal small bowel loops. Feces and gas noted in the colon throughout. The bilateral kidneys enhance symmetrically. Punctate 4 mm intrarenal collecting system calculus identified in the right kidney. Urinary bladder is mildly distended. Moderate aortic atherosclerosis. Moderate degenerative changes identified in the lumbar spine. IMPRESSION: 1. Minimal fat stranding identified about the distal small bowel loops, nonspecific could be mild enteritis. 2. Mild prominent appearing pancreatic duct. Nonspecific. Follow-up MRCP can be considered. 3. Punctate 4 mm calculus right kidney. 4. Minimal left lung base airspace opacities likely atelectasis or infiltrates. PE: GEN: NAD HEENT: Atraumatic, PERRL LUNGS: CTAB HEART: RRR ABD: NABS, S/ND, suprapubic discomfort EXTREMITY: No edema SKIN: No rashes, no jaundice NEURO/PSYCH: A & O 3 PROSTATE: per Dr. Aguirre, not particularly boggy but very tender A/P: A/P: Suprapubic pain Elevated lipase, h/o pancreatitis, mildly prominent PD on CT H/o Mckenna's esophagus - last EGD ~4 years ago -- D/w Dr. Urbina - suspect prostatitis - recommend Cipro or Levaquin. PPI for Mckenna's. Outpt EGD and colonoscopy re: this and weight loss. Consider EUS re: PD findings on CT. Stop alcohol, stop smoking. Okay to ADAT per GI. KAYLA BELL October 25, 2018 17:05
[2018-10-25 17:41] LABS: BILIRUBIN,URINE NEGATIVE (NEG); CLARITY,URINE CLEAR; COLOR,URINE YELLOW; NITRITE,URINE NEGATIVE (NEG); PROTEIN,URINE NEGATIVE (NEG-TRACE); UROBILINOGEN,URINE 0.2 mg/dL (0.2 mg/dL)
[2018-10-25 17:53] LABS: RBC,URINE 0 /HPF (0-2); WBC,URINE 0 /HPF (0-4)
[2018-10-25 17:54] LABS: BACTERIA,URINE 0 /HPF (0-FEW); SQUAMOUS EPITHELIAL CELL,UR OCC /LPF
[2018-10-25 19:00] VITALS: BP 120/62
[2018-10-25 23:00] VITALS: BP 98/65
[2018-10-26 03:00] VITALS: BP 121/73
[2018-10-26 07:00] VITALS: BP 120/84
[2018-10-26] MEDS ORDERED: PANTOPRAZOLE 40 MG TABLET.DR. PO SCH (07:30)
[2018-10-26] MEDS ORDERED: CIPROFLOXACIN HCL 250 MG TABLET. PO SCH (09:00)
[2018-10-26] MEDS: NICOTINE 21MG PATCH. TD SCH (09:08)
--- NOTE | 2018-10-26 09:41 | PDOC ---
Subjective: Subjective: No pain. Tolerating PO. Wants to go home and go back to work. Objective: Objective: D/w RN - pt asking to discharge. Cipro wasn't started yesterday - I added this morning. Vital Signs: Vital Signs Date Time Temp Pulse Resp B/P (MAP) Pulse Ox O2 Delivery O2 Flow Rate FiO2 10/26/18 07:00 98.0 79 16 120/84 (96) 93 Room Air 98.0 Labs: Laboratory Tests Test 10/25/18 16:30 Urine Collection Type Unknown Urine Color Yellow Urine Clarity Clear Urine pH 6.0 Urine Specific [place] 1.025 Urine Protein Negative mg/dL Urine Glucose (UA) Negative mg/dL Urine Ketones (Stick) Negative mg/dL Urine Blood Negative Urine Nitrite Negative Urine Bilirubin Negative Urine Urobilinogen Dipstick 0.2 mg/dL Urine Leukocyte Esterase Negative Urine RBC 0 /HPF Urine WBC 0 /HPF Urine Squamous Epithelial Cells Occ /LPF Urine Bacteria 0 /HPF Urine Mucus Slight /LPF PE: GEN: NAD LUNGS: cough HEART: RRR ABD: NABS, S/ND/NT NEURO/PSYCH: A & O 3 A/P: Suprapubic pain - resolved, ?prostatitis H/o pancreatitis, mildly prominent PD H/o Mckenna's esophagus -- DC per primary. Follow-up as outpt w/ urology. Our office will contact re: EUS, EGD, and c olonoscopy. Continue PPI for h/o Mckenna's. Stop alcohol. KAYLA BELL October 26, 2018 09:41
[2018-10-26 11:11] VITALS: BP 116/76
[2018-10-26] MEDS ORDERED: CIPR250T30 PO (12:04)
--- NOTE | 2018-10-26 12:08 | PDOC3 ---
Discharge Summary Visit Information Date of Admission: October 25, 2018 Date of Discharge: October 26, 2018 Admitting Diagnosis: Abdominal pain Final Diagnosis Problems Medical Problems: (1) Pancreatitis Status: Acute Brief Hospital Course Allergies Allergies Coded Allergies Type Severity Reaction Last Updated Verified No Known Drug Allergies 09/27/18 No Vital Signs Vital Signs Date Time Temp Pulse Resp B/P (MAP) Pulse Ox O2 Delivery O2 Flow Rate FiO2 10/26/18 11:11 98.1 67 14 116/76 (89) 94 Room Air 98.1 Lab Results Laboratory Tests Test 10/25/18 09:13 10/25/18 09:15 10/25/18 16:30 Urine Collection Type Unknown Unknown Urine Color Yellow Yellow Urine Clarity Cloudy Clear Urine pH 5.5 6.0 Urine Specific [place] 1.020 1.025 Urine Protein Negative mg/dL (NEG-TRACE) Negative mg/dL (NEG-TRACE) Urine Glucose (UA) Negative mg/dL (NEG) Negative mg/dL (NEG) Urine Ketones (Stick) Negative mg/dL (NEG) Negative mg/dL (NEG) Urine Blood Negative (NEG) Negative (NEG) Urine Nitrite Negative (NEG) Negative (NEG) Urine Bilirubin Negative (NEG) Negative (NEG) Urine Urobilinogen Dipstick 0.2 mg/dL (0.2 mg/dL) 0.2 mg/dL (0.2 mg/dL) Urine Leukocyte Esterase Negative (NEG) Negative (NEG) Urine RBC Occ /HPF (0-2) 0 /HPF (0-2) Urine WBC 1-4 /HPF (0-4) 0 /HPF (0-4) Urine Squamous Epithelial Cells Occ /LPF Occ /LPF Urine Bacteria Few /HPF (0-FEW) 0 /HPF (0-FEW) Urine Mucus Marked /LPF Slight /LPF White Blood Count 8.6 x10^3/uL (4.0-11.0) Red Blood Count 4.98 x10^6/uL (4.30-5.70) Hemoglobin 15.5 g/dL (13.0-17.5) Hematocrit 45.0 % (39.0-53.0) Mean Corpuscular Volume 90 fL (79-100) Mean Corpuscular Hemoglobin 31 pg (25-35) Mean Corpuscular Hemoglobin Concent 35 g/dL (31-37) Red Cell Distribution Width 12.9 % (11.5-14.5) Platelet Count 242 x10^3/uL (140-400) Neutrophils (%) (Auto) 65 % (31-73) Lymphocytes (%) (Auto) 27 % (24-48) Monocytes (%) (Auto) 6 % (0-9) Eosinophils (%) (Auto) 1 % (0-3) Basophils (%) (Auto) 1 % (0-3) Neutrophils # (Auto) 5.6 x10^3uL (1.8-7.7) Lymphocytes # (Auto) 2.3 x10^3/uL (1.0-4.8) Monocytes # (Auto) 0.5 x10^3/uL (0.0-1.1) Eosinophils # (Auto) 0.1 x10^3/uL (0.0-0.7) Basophils # (Auto) 0.1 x10^3/uL (0.0-0.2) Sodium Level 140 mmol/L (136-145) Potassium Level 4.0 mmol/L (3.5-5.1) Chloride Level 103 mmol/L (98-107) Carbon Dioxide Level 28 mmol/L (21-32) Anion Gap 9 (6-14) Blood Urea Nitrogen 11 mg/dL (8-26) Creatinine 0.8 mg/dL (0.7-1.3) Estimated GFR (Cockcroft-Gault) 99.6 BUN/Creatinine Ratio 14 (6-20) Glucose Level 96 mg/dL (70-99) Calcium Level 8.9 mg/dL (8.5-10.1) Total Bilirubin 0.8 mg/dL (0.2-1.0) Aspartate Amino Transf (AST/SGOT) 25 U/L (15-37) Alanine Aminotransferase (ALT/SGPT) 24 U/L (16-63) Alkaline Phosphatase 70 U/L (46-116) Total Protein 6.8 g/dL (6.4-8.2) Albumin 3.9 g/dL (3.4-5.0) Albumin/Globulin Ratio 1.3 (1.0-1.7) Lipase 3378 U/L (73-393) Prostate Specific Antigen 0.86 ng/mL (0.00-4.00) Laboratory Tests Test 10/25/18 16:30 Urine Collection Type Unknown Urine Color Yellow Urine Clarity Clear Urine pH 6.0 Urine Specific [place] 1.025 Urine Protein Negative mg/dL (NEG-TRACE) Urine Glucose (UA) Negative mg/dL (NEG) Urine Ketones (Stick) Negative mg/dL (NEG) Urine Blood Negative (NEG) Urine Nitrite Negative (NEG) Urine Bilirubin Negative (NEG) Urine Urobilinogen Dipstick 0.2 mg/dL (0.2 mg/dL) Urine Leukocyte Esterase Negative (NEG) Urine RBC 0 /HPF (0-2) Urine WBC 0 /HPF (0-4) Urine Squamous Epithelial Cells Occ /LPF Urine Bacteria 0 /HPF (0-FEW) Urine Mucus Slight /LPF Brief Hospital Course A 58 years old male patient with reported history of pancreatitis in setting of tobacco use disorder and alcoholism. He is currently admitted after he presented with suprapubic pain since this morning. He reports the pain is different from from the pain he had when he was told to have pancreatitis. The pain was described as sharp and 10/10 in severity. He denies urinary symptoms. No change in bowel habits. No melena or hematochezia. No nausea or vomiting. He has unintentional weight loss (>20 ibs). Abdomen was benign with no guarding or rebound tenderness. Rectal exam was notable for tender prostate on palpation. However, the prostate was normal in consistency. Labs unremarkable except elevated lipase. Imaging notable for minimal fat stranding in the distal small b owel loops of undetermined significance. Has mild prominent appearing pancreatic duct. Diet as tolerated. Pain resolved. Start Ciprofloxacin for 2-3 weeks for acute prostatitis. He needs to follow up with PCP or urology as out patient. Patient needs to follow up with GI as out patient for EGD/colonoscopy for weight loss. he may also need to have imaging of chest with reported weight loss in setting of history of smoking. He also needs to have upper EUS as out patient preferably at . Advised to cease smoking cigarettes and drinking. A/P: Abdominal pain - CT read as enteritis Unintentional weight loss - 20# over 3 months, GI f/u outpatient Acute pancreatitis - atypical presentation for him, however, lipase elevation and pain with history of ETOH and fatty food intake are pretty consistent. Still has his gallbladder. Will consult GI. He is amenable to a RUQ US Barretts esophagus - last scoped 4 years ago, only on H2 lasha outpatient. Will consult GI to see him Prostatitis - will d/c on 2 weeks cipro Discharge Information Condition at Discharge: Improved Follow Up: Weeks (2) Disposition/Orders: D/C to Home Scheduled Ciprofloxacin Hcl (Cipro) 250 Mg Tablet, 500 MG PO BID for Prostatitis for 14 Days, #56 Can sub with 500mg tab Prescribed by: VASILE CULLEN MD on 10/26/18 1204 Famotidine (Pepcid) 20 Mg Tablet, 20 MG PO BID, #14 Prescribed by: BOLIVAR SAXENA D.O. on 09/27/18 1300 Scheduled PRN Acetaminophen With Codeine (Tylenol With Codeine #3 Tablet) 1 Each Tablet, 1 TAB PO PRN Q6HRS PRN for PAIN, #10 Prescribed by: BOLIVAR SAXENA D.O. on 09/27/18 1300 Ondansetron (Ondansetron Odt) 4 Mg Tab.rapdis, 1 TAB PO PRN Q6-8HRS PRN for VOMITING, #16 Prescribed by: BOLIVAR SAXENA D.O. on 09/27/18 1300 Last Action: Continued on 10/25/18 1546 by MD SUBHASH KIRKPATRICK CHRISTOPHER S MD October 26, 2018 12:08
--- NOTE | 2018-10-26 13:31 | NUR ---
Discharge Note: MARK COLLADO [address] [place] [address] Discharge instructions and discharge home medications reviewed with Patient and a copy given. All questions have been answered and understanding verbalized. The following instructions and handouts were given: prostate problems, ABT&R Discontinued lines and drains: peripheral line. Patient discharged to Home or Self Care with Self via [facility].
== END 2018-10-26 14:40 | disposition home or self-care (01) | DRG 727 ==
LOC: ER 09:07 → 5 NORTH 11:02 → OBSVTOIN 11:09
PROVIDERS: ADMIT Internal Medicine; ATTEND Internal Medicine
DX: N41.0 Acute prostatitis (principal); K85.90 Acute pancreatitis without necrosis or infection, unspecified; F12.90 Cannabis use, unspecified, uncomplicated; F17.210 Nicotine dependence, cigarettes, uncomplicated; K21.9 Gastro-esophageal reflux disease without esophagitis; K52.9 Noninfective gastroenteritis and colitis, unspecified; K22.70 Barrett's esophagus without dysplasia; Z90.49 Acquired absence of other specified parts of digestive tract; Z82.49 Family history of ischemic heart disease and other diseases of the circulatory system
CPT/HCPCS: 36415; 74177; 80053; 81001; 83690; 85025; 96361; 96374; 96375; G0103; G0379; J2270; J2405; J3010; J7030; Q9967; 99285-25